=== PATIENT | female | born 1940 | race Caucasian/White ===

== ENCOUNTER 2017-02-26 14:05 | Emergency (ER) | payer MEDICARE ==
[~2017-02-26] VITALS: Ht 172.7 cm; Wt 70.0 kg
[2017-02-26] MEDS ORDERED: TRAMADOL HYDROC50 MG PO (17:30)
[2017-02-26] MEDS ORDERED: EC-NAPROSYN500 MG PO (17:30)
[2017-02-26 17:51] VITALS: BP 129/72
== END 2017-02-26 18:00 | disposition home or self-care (01) ==
LOC: ED 14:05
DX: S80.01XA Contusion of right knee, initial encounter (principal); S90.32XA Contusion of left foot, initial encounter; S93.492A Sprain of other ligament of left ankle, initial encounter; W10.9XXA Fall (on) (from) unspecified stairs and steps, initial encounter; Y93.K1 Activity, walking an animal; Y92.009 Unspecified place in unspecified non-institutional (private) residence as the place of occurrence of the external cause

== ENCOUNTER 2019-12-13 10:56 | Emergency (ER) | payer MEDICARE ==
[~2019-12-13] VITALS: Ht 167.6 cm; Wt 72.7 kg
[~2019-12-13 10:56] MED LIST: EC-NAPROSYN500 MG PO; TRAMADOL HYDROC50 MG PO
[2019-12-13] MEDS ORDERED: HYDROCO/APAP1 TA9 PO (13:00)
[2019-12-13] MEDS ORDERED: ALDACTONE25 MG PO (13:04)
[2019-12-13] MEDS ORDERED: LEVOTHYROXIN75 MC1 PO (13:04)
[2019-12-13] MEDS ORDERED: CARVEDILOL3.125 MG PO (13:04)
[2019-12-13] MEDS ORDERED: METFORMIN HCL500 M1 PO (13:05)
[2019-12-13] MEDS ORDERED: PRAVASTATIN20 MG PO (13:05)
[2019-12-13] MEDS ORDERED: GABAPENTIN300 M2 PO (13:05)
[2019-12-13] MEDS ORDERED: ENTRESTO 49-511 TAB PO (13:05)
[2019-12-13] MEDS ORDERED: DIGOXIN125 MCG PO (13:06)
[2019-12-13] MEDS ORDERED: MIDODRINE HCL5 MG PO (13:06)
[2019-12-13] MEDS ORDERED: DULOXETINE HCL60 MG PO (13:06)
[2019-12-13] MEDS ORDERED: WARFARIN SODIU2.5 M1 PO (13:07)
[2019-12-13] MEDS ORDERED: FUROSEMIDE20 MG PO (13:07)
[2019-12-13 13:23] VITALS: BP 127/78
[2020-01-09] MEDS ORDERED: GLIPIZIDE5 MG PO (14:41)
== END 2019-12-13 13:11 | disposition home or self-care (01) ==
LOC: ED 10:56
DX: S83.91XA Sprain of unspecified site of right knee, initial encounter (principal); S80.01XA Contusion of right knee, initial encounter; S70.11XA Contusion of right thigh, initial encounter; E11.9 Type 2 diabetes mellitus without complications; I10 Essential (primary) hypertension; I48.91 Unspecified atrial fibrillation; W18.39XA Other fall on same level, initial encounter; Y92.009 Unspecified place in unspecified non-institutional (private) residence as the place of occurrence of the external cause; Y99.9 Unspecified external cause status; Z95.810 Presence of automatic (implantable) cardiac defibrillator; Z79.01 Long term (current) use of anticoagulants

== ENCOUNTER 2020-04-11 19:38 | Inpatient (IN) | payer MEDICARE ==
[~2020-04-11] VITALS: Ht 167.6 cm; Wt 73.0 kg
[~2020-04-11 19:38] MED LIST changes: +ALDACTONE25 MG PO; +CARVEDILOL3.125 MG PO; +DIGOXIN125 MCG PO; +DULOXETINE HCL60 MG PO; +ENTRESTO 49-511 TAB PO; +FUROSEMIDE20 MG PO; +GABAPENTIN300 M2 PO; +GLIPIZIDE5 MG PO; +HYDROCO/APAP1 TA9 PO; +LEVOTHYROXIN75 MC1 PO; +METFORMIN HCL500 M1 PO; +MIDODRINE HCL5 MG PO; +PRAVASTATIN20 MG PO; +WARFARIN SODIU2.5 M1 PO
--- NOTE | 2020-04-11 19:40 | NUR ---
PATIENT BROUGHT TO ED BY EMS TO TREATMENT ROOM 9, PATIENT AWAKE AND ALERT, ORIENTED TO SELF AND SITUATION ONLY, C/O FAVER, COUGH AND SOB ON EXERTION FOR 4 DAYS, PATIENT STATES THAT HER HAS BEEN IN THE HOSPITAL FOR COVID+ PNEUMONIA SINCE SUNDAY, NO APPERANT DITRESS, RESPIRATIONS EVEN AND UNLABORED.
[2020-04-11 20:46] LABS: HEMATOCRIT 43.3 % (37.0-47.0); IMMATURE GRANULOCYTES 0.5 % (0.0-5.0); MEAN CELL VOLUME 94.3 fL CALC (80.0-100.0); MEAN CORPUSCULAR HGB 32.7 pG CALC (26.0-32.0); MEAN CORPUSCULAR HGB CONC 34.6 g/dL CAL (32.0-36.0); NEUT# 3.94 thou/uL (2.00-7.15); RED BLOOD COUNT 4.59 mill/uL (4.20-5.60); RED CELL DISTRI WIDTH 13.8 % (11.5-15.5)
--- NOTE | 2020-04-11 20:51 | NUR ---
PATIENT RESTING QUIETLY, NO C/O PAIN OR DSICOMFORT, NO S/S OF DISTRESS NOTED, RESPIRATIONS EVEN AND UNLABORED.
[2020-04-11 21:02] LABS: ALBUMIN 4.3 g/dL (3.2-5.0); ALKALINE PHOSPHATASE 65 u/l (38-126); ANION GAP 16 (6-22 (CALC)); BUN 26 mg/dL (8-23); BUN/CREATININE RATIO 27 (12-20 (CALC)); CARBON DIOXIDE 22 mmol/l (22-30); CHLORIDE 103 mmol/l (95-108); GFR 53 ML/MIN (>=60 (CALC)); GFR FOR AFR.AMER. > 60 ML/MIN (>=60 (CALC)); POTASSIUM 4.2 mmol/l (3.5-5.1); SGOT/AST 37 u/l (9-36); SODIUM 137 mmol/l (137-146)
[2020-04-11 21:03] LABS: INTERNATIONAL NORMALIZED RATIO 1.3 RATIO (0.7-1.3); PROTHROMBIN TIME 12.6 SECONDS (9.0-12.5)
[2020-04-11 21:14] LABS: MYOGLOBIN 42 ng/mL (0 - 62)
--- NOTE | 2020-04-11 22:00 | NUR ---
PATIENT PLACED IN HOSPITAL BED FOR COMFORT UNTIL INPATIENT ROOM AVAILABLE.
[2020-04-11 23:48] VITALS: BP 78/55
--- NOTE | 2020-04-12 00:37 | NUR ---
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
--- NOTE | 2020-04-12 02:30 | NUR ---
PATIENT RESTING QUIETLY WITH EYES CLOSED, RESPIRATIONS EVEN AND UNLABORED, NO C/O PAIN OR DISCOMFORT, NO S/S OF DISTRESS NOTED, PATIENT AWAITING INPATIENT ROOM ASSIGNMENT.
--- NOTE | 2020-04-12 04:30 | NUR ---
PATIENT RESTING QITH EYES CLOSED, RESPIRATIONS EVEN AND UNLABORED, NO C/O PAIN OR DISCOMFORT, NO S/S OF DISTRES SNOTED, PATIENT AWAITING INPATIENT ROOM ASSIGNMENT.
--- NOTE | 2020-04-12 05:30 | NUR ---
LAB AT BEDSIDE TO DRAW MORNING LABS, PATIENT AWAKE AND ALERT, NO C/O PAIN OR DISCOMFORT, NO S/S OF DISTRESS NOTED, RESPIRATIONS EVEN AND UNLABORED, AWAITING INPATIENT BED.
[2020-04-12 06:01] LABS: BUN 26 mg/dL (8-23); BUN/CREATININE RATIO 28 (12-20 (CALC)); CARBON DIOXIDE 22 mmol/l (22-30); CHLORIDE 108 mmol/l (95-108); GFR 53 ML/MIN (>=60 (CALC)); GFR FOR AFR.AMER. > 60 ML/MIN (>=60 (CALC)); SODIUM 137 mmol/l (137-146)
[2020-04-12 06:03] LABS: ANION GAP 11 (6-22 (CALC)); POTASSIUM 3.8 mmol/l (3.5-5.1)
--- NOTE | 2020-04-12 06:27 | NUR ---
PATIENT RESTING WITH EYES CLOSED, RESPIRATIONS EVEN AND UNLABORED, AWAITING INPATIENT BED ASSIGNMENT.
--- NOTE | 2020-04-12 07:04 | NUR ---
HAND OFF REPORT GIVEN TO JOE
--- NOTE | 2020-04-12 07:05 | NUR ---
RECEIVED BEDSIDE REPORT FROM SELAM CURRY. PT RESTING IN BED WITH EYES CLOSED, AWAKENS EASILY. RESPS EVEN AND UNLABORED ON O2 VIA NC. VSS, MONITORS ATTACHED. CALL LIGHT WITHIN REACH.
[2020-04-12 07:20] VITALS: BP 111/78
[2020-04-12] MEDS ORDERED: ATORVASTATIN CA40 MG PO (07:27)
[2020-04-12] MEDS ORDERED: GLIPIZIDE10 MG PO (07:28)
[2020-04-12] MEDS ORDERED: MIDODRINE5 MG PO (07:28)
[2020-04-12] MEDS ORDERED: METFORMIN500 M2 PO (07:28)
[2020-04-12] MEDS ORDERED: WARFARIN SODIU2.5 M1 PO (07:28)
[2020-04-12] MEDS ORDERED: CARVEDILOL3.125 MG PO (07:29)
[2020-04-12] MEDS ORDERED: SPIRONOLACT25 MG PO (07:29)
[2020-04-12] MEDS ORDERED: GABAPENTIN300 M2 PO (07:29)
[2020-04-12] MEDS ORDERED: LEVOTHYROXIN75 MCG PO (07:30)
[2020-04-12 08:07] VITALS: BP 111/78
--- NOTE | 2020-04-12 10:20 | NUR ---
RESTING IN BED WITH EYES CLOSED, RESPS EVEN AND UNLABORED ON O2 AT 1.5L VIA NC. VSS, MONITORS ATTACHED. DENIES NEEDS AT THIS TIME. CALL LIGHT WITHIN REACH.
[2020-04-12 10:30] VITALS: BP 100/67
--- NOTE | 2020-04-12 10:43 | NUR ---
REPORT GIVEN TO MEGAN CURRY.
[2020-04-12 10:58] LABS: URINE BLOOD DIPSTICK NEGATIVE (NEGATIVE); URINE GLUCOSE - DIPSTICK 250 mg/dL (NEGATIVE); URINE KETONE NEGATIVE (NEGATIVE); URINE NITRITE - DIPSTICK NEGATIVE (Negative); URINE PH 5.5 (4.5-8.0); URINE PROTEIN - DIPSTICK 100 mg/dL (NEG-TRACE); URINE SPECIFIC GRAVITY >=1.030; URINE UROBILINOGEN - DIPSTICK 0.2 E.U./dL (0.2)
[2020-04-12 11:00] LABS: URINE BILIRUBIN - DIPSTICK SMALL (NEGATIVE); URINE COLOR DK. YELLOW; URINE LEUK ESTERASE SMALL (NEGATIVE)
--- NOTE | 2020-04-12 11:00 | NUR ---
TO ROOM 281 VIA BED, TELE MONITOR IN PLACE. BEDSIDE REPORT GIVEN TO MEGAN CURRY.
[2020-04-12 11:01] LABS: URINE BACTERIA MODERATE hpf; URINE EPITHELIAL CELLS FEW EPI/hpf (0-FEW); URINE MUCUS FEW hpf (NONE-FEW); URINE WBC 20-50 WBC/hpf (0-5)
--- NOTE | 2020-04-12 11:30 | NUR ---
PT ARRIVES TO ROOM 281 VIA BED FROM ER ACCOMPANIED BY JOE CURRY. PT IS ALERT, AWAKE, ORIENTED X 2-3. LUNGS CLEAR, 2 LPM NC. NO COUGH, NO RESPIRATORY DISTRESS.
--- NOTE | 2020-04-12 13:00 | NUR ---
PT CONTINUES TO REST IN THE BED WITHOUT COMPLAINT OR EVIDENCE OF DISTRESS. PT HAS BEEN ABLE TO SPEAK TO HER BY PHONE HE IS PT HERE ALSO.
[2020-04-12 15:00] VITALS: BP 96/62
[2020-04-12 19:00] VITALS: BP 126/79
--- NOTE | 2020-04-12 19:00 | NUR ---
REPORT RECEIVED FROM ANTOINETTE GUZMAN. PT RESTING IN BED, NO S/S OF DISTRESS AT THIS TIME. SAFETY PRECAUTIONS IN PLACE. WILL CONTINUE TO MONITOR.
--- NOTE | 2020-04-12 21:10 | NUR ---
PT RESTING IN BED, ALERT AND ORIENTED. RESPIRATIONS ARE EVEN AND UNLABORED, LUNGS SOUND DIMINISHED. PEDAL PULSES ARE STRONG. PT DENIES ANY PAIN OR DISCOMFORT AT THIS TIME. SAFETY PRECAUTIONS IN PLACE. WILL CONTINUE TO MONITOR.
[2020-04-13] VITALS (7 sets, daily range): BP systolic 92–129; BP diastolic 63–82
--- NOTE | 2020-04-13 00:10 | NUR ---
PT RESTING IN BED, FREE FROM DISTRESS AT THIS TIME.
--- NOTE | 2020-04-13 04:36 | NUR ---
PT RESTING IN BED, NO S/S OF DISTRESS AT THIS TIME. SAFETY PRECAUTIONS IN PLACE.
[2020-04-13 08:15] LABS: IMMATURE GRANULOCYTES 0.2 % (0.0-5.0); MEAN CORPUSCULAR HGB 32.9 pG CALC (26.0-32.0); MEAN CORPUSCULAR HGB CONC 33.9 g/dL CAL (32.0-36.0); NEUT# 2.68 thou/uL (2.00-7.15); RED BLOOD COUNT 3.71 mill/uL (4.20-5.60); RED CELL DISTRI WIDTH 13.6 % (11.5-15.5)
--- NOTE | 2020-04-13 09:00 | NUR ---
PT IS AWAKE, ALERT, ORIENTED X 3. LUNGS CLEAR, 2 LPM NC. PT DENIES SHORTNESS OF BREATH. NO DISTRESS NOTED.
[2020-04-13 09:25] LABS: HEMOGLOBIN 12.2 g/dl (12.0-16.0)
[2020-04-13 09:52] LABS: ALKALINE PHOSPHATASE 50 u/l (38-126); ANION GAP 12 (6-22 (CALC)); BUN 21 mg/dL (8-23); BUN/CREATININE RATIO 27 (12-20 (CALC)); C-REACTIVE PROTEIN 4.3 mg/dL (0-0.9); CARBON DIOXIDE 18 mmol/l (22-30); CHLORIDE 114 mmol/l (95-108); CREATININE 0.8 mg/dL (0.5-1.0); GFR > 60 ML/MIN (>=60 (CALC)); GFR FOR AFR.AMER. > 60 ML/MIN (>=60 (CALC)); SGOT/AST 28 u/l (9-36); SODIUM 140 mmol/l (137-146)
[2020-04-13 09:53] LABS: ALBUMIN 3.2 g/dL (3.2-5.0); BILIRUBIN, TOTAL 0.5 mg/dL (0.0-1.4)
[2020-04-13 11:52] LABS: TSH, 3RD GENERATION 0.85 uIU/mL (0.47 - 4.68)
--- NOTE | 2020-04-13 13:00 | NUR ---
PT SEEN BY DR BEASLEY TODAY, THOUGHT SHE WOULD BE DISCHARGED BUT THAT WAS NOT WHAT THE DOCTOR SAID. PT REMAINS STABLE BFORE WITHOUT EVIDENCE OF DISTRESS.
[2020-04-13 14:04] LABS: INTERNATIONAL NORMALIZED RATIO 1.2 RATIO (0.7-1.3); PROTHROMBIN TIME 11.6 SECONDS (9.0-12.5)
--- NOTE | 2020-04-13 16:43 | NUR ---
PT CALLED AND STATED THAT SHE WANTS TO GO HOME ALONG WITH HER . SHE IS GETTING ANXIOUS ABOUT STAYING ANOTHER NIGHT. AFTER DISCUSSION WITH DR BEASLEY AND JAMEEL ERVIN AND , PT WAS CONVINCED TO STAY. SHE STATES THAT SHE NEEDS A SEDATIVE AND JAMEEL SAID THAT SHE WOULD PROVIDE THAT.
--- NOTE | 2020-04-13 19:05 | NUR ---
RECEIVED REPORT FROM MEGAN, PT RESTING IN BED IN [place]. NO S/SX OF DISTRESS OBSERVED AT THIS TIME, PT DENIES PAIN, NO NEEDS OR CONCERNS EXPRESSED AT THIS TIME. WILL CONTINUE TO MONITOR.
--- NOTE | 2020-04-14 00:35 | NUR ---
PT RESTING IN BED, NO S/S OF DISTRESS AT THIS TIME. SAFETY PRECAUTIONS IN PLACE.
[2020-04-14 04:00] VITALS: BP 134/86
[2020-04-14 05:42] LABS: HEMATOCRIT 36.3 % (37.0-47.0); HEMOGLOBIN 12.1 g/dl (12.0-16.0); MEAN CELL VOLUME 97.6 fL CALC (80.0-100.0); MEAN CORPUSCULAR HGB 32.5 pG CALC (26.0-32.0); MEAN CORPUSCULAR HGB CONC 33.3 g/dL CAL (32.0-36.0); NEUT# 2.56 thou/uL (2.00-7.15); RED BLOOD COUNT 3.72 mill/uL (4.20-5.60); RED CELL DISTRI WIDTH 13.7 % (11.5-15.5)
[2020-04-14 06:03] LABS: ALKALINE PHOSPHATASE 48 u/l (38-126); ANION GAP 12 (6-22 (CALC)); BILIRUBIN, TOTAL 0.3 mg/dL (0.0-1.4); BUN 18 mg/dL (8-23); BUN/CREATININE RATIO 25 (12-20 (CALC)); CARBON DIOXIDE 19 mmol/l (22-30); CHLORIDE 113 mmol/l (95-108); CREATININE 0.7 mg/dL (0.5-1.0); GFR > 60 ML/MIN (>=60 (CALC)); GFR FOR AFR.AMER. > 60 ML/MIN (>=60 (CALC)); SGOT/AST 23 u/l (9-36); SODIUM 139 mmol/l (137-146); TOTAL PROTEIN 5.6 g/dL (6.3-8.2)
[2020-04-14 06:42] LABS: IMMATURE GRANULOCYTES 0.5 % (0.0-5.0)
--- NOTE | 2020-04-14 08:00 | NUR ---
SHIFT CHANGE REPORT, PT AWAKE ALERT AND ORIENTED RESTING IN BED, NO C/O DISCOMFORT AT THIS TIME, NEEDS ADDRESSED, CALL [facility] IN REACH.
[2020-04-14 09:53] VITALS: BP 125/76
[2020-04-14 11:04] VITALS: BP 140/84
[2020-04-14] MEDS ORDERED: DEXAMETHASON6 MG PO (11:24)
[2020-04-14] MEDS ORDERED: ZITHROMAX250 MG PO (11:25)
--- NOTE | 2020-04-14 12:00 | NUR ---
MEDICAL TEAM ROUNDED AND DISCUSSED PLAN OF CARE, PT STATED UNDERSTANDING BUT EXPRESSED DESIRE TO STAY LONGER WHILE SPOUSE WAS STILL HERE. MD EXPLAINED REASON SHE SHOULD NOT STAY AND SHE AGREED.
--- NOTE | 2020-04-14 14:30 | NUR ---
Discharge instructions given. Patient verbalizes understanding of same. Discharged in stable condition via Wheelchair to Home with *Other. All belongings sent with pt. PT STATED SHE HAD NO RIDE TO GO HOME AND WAS GIVEN OPTION TO TRAVEL IN [place] WHICH SHE AGREED TO; THEREFORE [facility] WAS CALLED AND PT WENT HOME IN [place]
== END 2020-04-14 14:23 | disposition home or self-care (01) | DRG 177 ==
LOC: ED 19:38 → ED-I 21:31 → ED 21:42 → ED-I 21:43 → MS2 04-12 08:00
PROVIDERS: Family Medicine; Nurse Practitioner Family; ADMIT Internal Medicine; ATTEND Internal Medicine
DX: U07.1 COVID-19 (principal); J96.00 Acute respiratory failure, unspecified whether with hypoxia or hypercapnia; N39.0 Urinary tract infection, site not specified; E86.0 Dehydration; I48.91 Unspecified atrial fibrillation; I11.0 Hypertensive heart disease with heart failure; I50.9 Heart failure, unspecified; E11.40 Type 2 diabetes mellitus with diabetic neuropathy, unspecified; E03.9 Hypothyroidism, unspecified; E78.00 Pure hypercholesterolemia, unspecified; Z79.01 Long term (current) use of anticoagulants; Z79.84 Long term (current) use of oral hypoglycemic drugs; Z79.899 Other long term (current) drug therapy; Z95.810 Presence of automatic (implantable) cardiac defibrillator
CPT/HCPCS: J1650

== ENCOUNTER 2022-05-23 12:33 | Observation (INO) | payer MEDICARE ==
[2022-05-23] VITALS (18 sets, daily range): BP systolic 73–118; BP diastolic 39–62
[~2022-05-23] VITALS: Ht 167.6 cm; Wt 58.2 kg
[~2022-05-23 12:33] MED LIST changes: +ATORVASTATIN CA40 MG PO; +DEXAMETHASON6 MG PO; +DIGOXIN0.125 MG PO; +DULOXETINE HCL1 POW PO; +GLIPIZIDE10 M2 PO; +GLIPIZIDE10 M3 PO; +JANTOVEN3 MG PO; +LEVOTHYROXIN75 MCG PO; +METFORMIN500 M2 PO; +MIDODRINE5 MG PO; +SPIRONOLACT25 MG PO; +TOPROL XL25 M1 PO; +VITAMIN B COMPL1 TAB PO; +ZITHROMAX250 MG PO
[2022-05-23 12:59] LABS: BASO% 0.2 % (0-3); EOS% 2.9 % (0-8); HEMATOCRIT 41.5 % (37.0-47.0); HEMOGLOBIN 14.1 g/dl (12.0-16.0); IMMATURE GRANULOCYTES 0.1 % (0.0-5.0); LYMPH% 31.4 % (15-41); MEAN CELL VOLUME 99.8 fL CALC (80.0-100.0); MEAN CORPUSCULAR HGB 33.9 pG CALC (26.0-32.0); MONO% 11.2 % (2-13); NEUT# 4.4 thou/uL (2.00-7.15); NEUT% 54.2 % (42-76); RED BLOOD COUNT 4.16 mill/uL (4.20-5.60); RED CELL DISTRI WIDTH 14.5 % (11.5-15.5)
[2022-05-23 13:15] LABS: INTERNATIONAL NORMALIZED RATIO 2.1 RATIO (0.7-1.3); PROTHROMBIN TIME 20.6 SECONDS (9.0-12.5)
[2022-05-23 13:18] LABS: ALBUMIN 4.3 g/dL (3.2-5.0); CREATININE 1.3 mg/dL (0.5-1.0); POTASSIUM 4.7 mmol/l (3.5-5.1); TOTAL PROTEIN 7.1 g/dL (6.3-8.2)
[2022-05-23 13:30] LABS: BILIRUBIN, TOTAL 0.5 mg/dL (0.0-1.4)
[2022-05-24 00:19] VITALS: BP 98/60
[2022-05-24 04:03] VITALS: BP 90/54
[2022-05-24 04:35] LABS: BASO% 0.4 % (0-3); EOS% 2.8 % (0-8); IMMATURE GRANULOCYTES 0.1 % (0.0-5.0); LYMPH% 23.7 % (15-41); MEAN CELL VOLUME 98.9 fL CALC (80.0-100.0); MEAN CORPUSCULAR HGB 32.4 pG CALC (26.0-32.0); MEAN CORPUSCULAR HGB CONC 32.8 g/dL CAL (32.0-36.0); MONO% 9.2 % (2-13); NEUT# 4.79 thou/uL (2.00-7.15); NEUT% 63.8 % (42-76); RED BLOOD COUNT 3.58 mill/uL (4.20-5.60); RED CELL DISTRI WIDTH 14.2 % (11.5-15.5)
[2022-05-24 04:52] LABS: INTERNATIONAL NORMALIZED RATIO 2.3 RATIO (0.7-1.3); PROTHROMBIN TIME 21.8 SECONDS (9.0-12.5)
[2022-05-24 04:58] LABS: ALBUMIN 3.5 g/dL (3.2-5.0); ALKALINE PHOSPHATASE 82 u/l (38-126); ANION GAP 9 (6-22 (CALC)); BILIRUBIN, TOTAL 0.5 mg/dL (0.0-1.4); BUN 25 mg/dL (8-23); BUN/CREATININE RATIO 25 (12-20 (CALC)); CARBON DIOXIDE 27 mmol/l (22-30); CHLORIDE 106 mmol/l (95-108); GFR FOR AFR.AMER. > 60 ML/MIN (>=60 (CALC)); GFR OTHER RACES 53 ML/MIN (>=60 (CALC)); POTASSIUM 4.1 mmol/l (3.5-5.1); SGOT/AST 28 u/l (9-36); SODIUM 139 mmol/l (137-146); TOTAL PROTEIN 6.3 g/dL (6.3-8.2)
[2022-05-24 07:21] LABS: HEMATOCRIT 35.4 % (37.0-47.0); HEMOGLOBIN 11.6 g/dl (12.0-16.0)
[2022-05-24 10:09] VITALS: BP 102/59
[2022-05-24 11:35] VITALS: BP 97/59
== END 2022-05-24 12:32 | disposition home or self-care (01) ==
LOC: ED 12:33 → ED-I 15:50 → ED 16:02 → MS2 16:03
PROVIDERS: Emergency Medicine; Nurse Practitioner Family; ADMIT Internal Medicine; ATTEND Internal Medicine
DX: S00.03XA Contusion of scalp, initial encounter (principal); I48.91 Unspecified atrial fibrillation; I11.0 Hypertensive heart disease with heart failure; I50.22 Chronic systolic (congestive) heart failure; E11.9 Type 2 diabetes mellitus without complications; E78.00 Pure hypercholesterolemia, unspecified; V58.4XXA Person boarding or alighting a pick-up truck or van injured in noncollision transport accident, initial encounter; Y92.481 Parking lot as the place of occurrence of the external cause; Z23 Encounter for immunization; Z95.810 Presence of automatic (implantable) cardiac defibrillator; Z79.84 Long term (current) use of oral hypoglycemic drugs; Z79.01 Long term (current) use of anticoagulants

== ENCOUNTER 2022-11-30 19:00 | Emergency (ER) | payer MEDICARE ==
[2022-11-30] VITALS (8 sets, daily range): BP systolic 90–108; BP diastolic 60–70
[~2022-11-30] VITALS: Ht 167.6 cm; Wt 61.8 kg
[2022-11-30] MEDS ORDERED: CYMBALTA60 MG PO (19:24)
[2022-11-30] MEDS ORDERED: ELIQUIS2.5 MG PO (19:25)
[2022-11-30 19:32] LABS: BASO% 0.2 % (0-3); EOS% 0.2 % (0-8); HEMATOCRIT 33.5 % (37.0-47.0); HEMOGLOBIN 11.1 g/dl (12.0-16.0); IMMATURE GRANULOCYTES 0.2 % (0.0-5.0); LYMPH% 7.9 % (15-41); MEAN CELL VOLUME 94.9 fL CALC (80.0-100.0); MEAN CORPUSCULAR HGB 31.4 pG CALC (26.0-32.0); MEAN CORPUSCULAR HGB CONC 33.1 g/dL CAL (32.0-36.0); MONO% 9.8 % (2-13); NEUT# 3.83 thou/uL (2.00-7.15); NEUT% 81.7 % (42-76); RED BLOOD COUNT 3.53 mill/uL (4.20-5.60); RED CELL DISTRI WIDTH 15.1 % (11.5-15.5)
[2022-11-30 19:44] LABS: ALKALINE PHOSPHATASE 93 u/l (38-126); ANION GAP 14 (6-22 (CALC)); BILIRUBIN, TOTAL 1.4 mg/dL (0.02-1.3); BUN 20 mg/dL (8-23); BUN/CREATININE RATIO 23 (12-20 (CALC)); CARBON DIOXIDE 21 mmol/l (22-30); CHLORIDE 107 mmol/l (95-108); CPK 76 u/l (30-135); CREATININE 0.9 mg/dL (0.5-1.0); DIGOXIN 0.8 ng/mL (0.8-2.0); GFR FOR AFR.AMER. > 60 ML/MIN (>=60 (CALC)); GFR OTHER RACES 60 ML/MIN (>=60 (CALC)); POTASSIUM 4.4 mmol/l (3.5-5.1); SGOT/AST 36 u/l (9-36); SODIUM 137 mmol/l (137-146); TOTAL PROTEIN 6.9 g/dL (6.3-8.2)
[2022-11-30 20:12] LABS: TSH, 3RD GENERATION 0.68 uIU/mL (0.47 - 4.68)
== END 2022-11-30 23:14 | disposition short-term general hospital (02) ==
LOC: ED 19:00
PROVIDERS: Family Medicine
DX: S06.5X0A Traumatic subdural hemorrhage without loss of consciousness, initial encounter (principal); R40.2412 Glasgow coma scale score 13-15, at arrival to emergency department; S00.12XA Contusion of left eyelid and periocular area, initial encounter; S00.83XA Contusion of other part of head, initial encounter; R79.89 Other specified abnormal findings of blood chemistry; I48.91 Unspecified atrial fibrillation; I11.0 Hypertensive heart disease with heart failure; I50.9 Heart failure, unspecified; E11.9 Type 2 diabetes mellitus without complications; E78.00 Pure hypercholesterolemia, unspecified; W19.XXXA Unspecified fall, initial encounter; Z95.810 Presence of automatic (implantable) cardiac defibrillator; Z79.01 Long term (current) use of anticoagulants; Z79.84 Long term (current) use of oral hypoglycemic drugs; Z91.81 History of falling; Z20.822 Contact with and (suspected) exposure to COVID-19
CPT/HCPCS: J1160